=== PATIENT | male | born 1955 | race Caucasian/White ===

== ENCOUNTER 2020-12-17 07:07 | Day surgery (SDC) | payer MEDICAID ==
[2020-12-17] MEDS ORDERED: Dextrose 5%-Lactated Ringers 1,000 ML IV SCH (07:45)
[2020-12-17] MEDS ORDERED: Propofol 200 MG/20 ML SDV ONE ×2 (07:58→09:04)
[2020-12-17] MEDS ORDERED: fentaNYL 100 MCG/2 ML SDV ONE (07:58)
[2020-12-17] MEDS ORDERED: Midazolam 1 MG/ML 2 ML SDV ONE (07:58)
[2020-12-17] MEDS ORDERED: Ondansetron 4 MG/2 ML SDV ONE (08:45)
[2020-12-17] MEDS ORDERED: Dexamethasone 4 MG/ML SDV ONE (08:45)
--- NOTE | 2021-01-03 12:43 | OR ---
DATE OF PROCEDURE: 12/17/2020 SURGEON: Swapnil Calderon MD PREOPERATIVE DIAGNOSIS: Indications for screening colonoscopy with family history of Hahn syndrome (sister). POSTOPERATIVE DIAGNOSES: 1. Indications for screening colonoscopy with family history of Hahn syndrome (sister). 2. Extensive pandiverticulosis with no polyps or other signs of neoplastic change. OPERATIVE PROCEDURE: Flexible colonoscopy. ANESTHESIA: IV sedation. INDICATIONS FOR PROCEDURE: A 65-year-old male presenting for a screening colonoscopy. I questioned the patient. He does have a family history of a sister having Hahn syndrome, and given this, he is potentially at high risk for colon or other neoplastic events. The plan is to proceed with a colonoscopy with biopsies and/or polypectomy as indicated. Potential risks of the procedure including bleeding and perforation were discussed, and the patient wishes to proceed. DETAILS OF PROCEDURE: The patient was taken to the operating room and placed in a left lateral decubitus position. IV sedation was administered, after which a digital rectal exam was performed and was unremarkable. The colonoscope was passed into the rectum with retroflexion revealing uncomplicated hemorrhoidal columns. The scope was eventually passed to the level of the cecum. The prep was generally quite good with only a small amount of liquid stool present. The patient had extensive pandiverticulosis beginning in the distal sigmoid colon, extending into the level of the cecum. This, however, was uncomplicated. Otherwise, there were no areas of colitis, and no polyps or other signs of neoplasia. The scope was then withdrawn, the above findings reconfirmed, and the procedure then concluded. RECOMMENDATIONS: Repeat colonoscopy in 5 years given the family history of Hahn syndrome. One additional consideration brought up by the patient and his family member was possible genetic testing to see if he in fact has inherited the Hahn syndrome genome, in which case both and his offspring would be at high risk for . Hahn syndrome is inheritable with an autosomal dominant pattern of inheritance, so the patient would roughly have a 30% chance of having Hahn syndrome at this point. We will leave this up to the patient and his primary physician, Dr. Barnett. Swapnil Calderon MD /[id number]
== END 2020-12-17 10:30 | disposition home or self-care (01) ==
LOC: JP.SDS 07:07
PROVIDERS: ATTEND Surgery
DX: Z12.11 Encounter for screening for malignant neoplasm of colon (principal); K57.30 Diverticulosis of large intestine without perforation or abscess without bleeding; K64.9 Unspecified hemorrhoids; Z84.81 Family history of carrier of genetic disease
CPT/HCPCS: 45378; J1100; J2250; J2405; J2704; J3010; J7121